=== PATIENT | male | born 1970 | race Caucasian/White ===

== ENCOUNTER 2017-07-05 20:23 | Emergency (ER) | payer OTHER ==
--- NOTE | 2017-07-05 22:46 | ER Document Report ---
ED General - General Chief Complaint: Back Injury Stated Complaint: BACK INJURY Time Seen by Provider: 07/05/17 22:28 Notes: Patient is a 47-year-old male comes emergency department for chief complaint of flank and upper abdominal pain. He states that one week ago he was lifting part of an engine and he felt a pop in his back and he was sore for a few days, he states he got over this but this morning he started developing pain that radiated into his right upper abdomen and around to his right mid back. He also admits to nausea, reduced appetite. He denies vomiting, fever, focal numbness or weakness, dysuria. Past medical history of prostate cancer, prostatectomy, kidney infections. No current daily medications. TRAVEL OUTSIDE OF THE [place] IN LAST 30 DAYS: No - Related Data Allergies/Adverse Reactions: No Known Allergies Allergy (Verified 05/28/12 04:32) Past Medical History - General Information source: Patient - Social History Smoking Status: Never Smoker Frequency of alcohol use: None Drug Abuse: None Lives with: Family Family History: Reviewed & Not Pertinent Pulmonary Medical History: Reports: Hx Bronchitis Denies: Hx Tuberculosis Renal/ Medical History: Reports: Hx Benign Prostatic Hyperplasia, Hx Kidney Stones Past Surgical History: Reports: Hx Urinary Tract Surgery - prostate surgery 3 wks ago. Denies: Hx Pacemaker - Immunizations Hx Diphtheria, Pertussis, Tetanus Vaccination: - unk Review of Systems - Review of Systems Constitutional: No symptoms reported EENT: No symptoms reported Cardiovascular: No symptoms reported Respiratory: No symptoms reported Gastrointestinal: See HPI Genitourinary: See HPI Male Genitourinary: No symptoms reported Musculoskeletal: See HPI Skin: No symptoms reported Hematologic/Lymphatic: No symptoms reported Neurological/Psychological: No symptoms reported Physical Exam - Vital signs Vitals: Temp Pulse Resp BP Pulse Ox 98.0 F 59 L 20 122/57 L 98 07/05/17 20:33 07/05/17 20:33 07/05/17 20:33 07/05/17 20:33 07/05/17 20:33 Interpretation: Normal - General General appearance: Appears well, Alert In distress: None - HEENT Head: Normocephalic, Atraumatic Eyes: Normal Pupils: PERRL - Respiratory Respiratory status: No respiratory distress Chest status: Nontender Breath sounds: Normal Chest palpation: Normal - Cardiovascular Rhythm: Regular Heart sounds: Normal auscultation Murmur: No - Abdominal Inspection: Normal Distension: No distension Bowel sounds: Normal Tenderness: Tender - Tender in the right upper quadrant and right side on exam, eating abdomen is benign. No: Guarding Organomegaly: No organomegaly - Back Back: Normal, Nontender. No: Tender, Vertebra tenderness - Extremities General upper extremity: Normal inspection, Nontender, Normal color, Normal ROM , Normal temperature General lower extremity: Normal inspection, Nontender, Normal color, Normal ROM , Normal temperature, Normal weight bearing. No: Malvin's sign - Neurological Neuro grossly intact: Yes Cognition: Normal Orientation: AAOx4 [place] Coma Scale Eye Opening: Spontaneous [place] Coma Scale Verbal: Oriented [place] Coma Scale Motor: Obeys Commands [place] Coma Scale Total: 15 Speech: Normal Motor strength normal: LUE, RUE, LLE, RLE Sensory: Normal - Psychological Associated symptoms: Normal affect, Normal mood - Skin Skin Temperature: Warm Skin Moisture: Dry Skin Color: Normal Course - Re-evaluation Re-evalutation: Despite patient reported symptoms patient has mid upper right abdominal tenderness along with pain radiating around his side and towards his back. I do not appreciate any particular areas of back pain with palpation, he does wince occasionally with movement. Because of abdominal pain and reported nausea earlier along with pain in the right upper quadrant on examination, ultrasound, laboratory workup performed. This does not show any concerning abnormalities. Patient's vital signs are normal. Discussed with patient. Appears to be musculoskeletal in nature, questionable gallbladder dyskinesia, does not appear to be specifically intra-abdominal source based on his workup. Minimal blood on urinalysis, no kidney stones or hydronephrosis noted on ultrasound. Patient does not present like a kidney stone, has no CVA tenderness. After discussion patient placed on muscle relaxer, given follow-up recommendations and return precautions. Patient states satisfaction and agreement. - Vital Signs Vital signs: Temp Pulse Resp BP Pulse Ox 97.9 F 54 L 18 123/76 98 07/06/17 00:43 07/06/17 00:43 07/06/17 00:43 07/06/17 00:43 07/06/17 00:43 - Laboratory Result Diagrams: 07/05/17 23:00 07/05/17 23:00 Laboratory results interpreted by me: 07/05/17 07/05/17 07/05/17 23:00 23:00 23:00 Hgb 13.3 L MCH 26.8 L RDW 14.8 H BUN 23 H Urine Blood SMALL H Urine Urobilinogen 4.0 H Discharge - Discharge Clinical Impression: Flank pain Abdominal pain Qualifiers: Abdominal location: upper abdomen, unspecified Qualified Code(s): R10.10 - Upper abdominal pain, unspecified Condition: Stable Disposition: HOME, SELF-CARE Additional Instructions: Your ultrasound and workup did not indicate a problem with your kidney, liver, or gallbladder. I do suspect this is still muscular in nature. Take the muscle relaxer as prescribed, apply heat to the area, rest. Take the medication given tonight if needed for worse pain. Consider follow-up HIDA scan because of the location of your pain tonight to further evaluate your symptoms. Follow-up with primary care. Return to the emergency department for any concerning or worsening symptoms including vomiting, fever, return or worsening pain, or any other concerning symptoms. Prescriptions: Methocarbamol [Robaxin 750 mg Tablet] 750 mg PO Q6 #20 tablet Forms: Return to Work
[2017-07-05 23:22] LABS: ABSOLUTE EOSINOPHILS # (AUTO) 0.2 10^3/uL (0.0-0.6); ABSOLUTE LYMPHOCYTES (AUTO) 2.6 10^3/uL (0.5-4.7); ABSOLUTE MONOCYTES (AUTO) 0.5 10^3/uL (0.1-1.4); ABSOLUTE NEUT (AUTO) 2.7 10^3/uL (1.7-8.2); BASOPHILS % (AUTO) 0.7 % (0-2); EOSINOPHILS % (AUTO) 3.6 % (0-6); HEMATOCRIT 40.7 % (37.9-51.0); HEMOGLOBIN 13.3 g/dL (13.5-17.0); HGB HCT DIFFERENCE -0.8; LYMPHOCYTES % (AUTO) 42.8 % (13-45); MEAN CORPUSCULAR HEMOGLOBIN 26.8 pg (27.0-33.4); MEAN CORPUSCULAR HGB CONC 32.8 g/dL (32.0-36.0); MEAN CORPUSCULAR VOLUME 82 fl (80-97); MONOCYTES % (AUTO) 8.8 % (3-13); RED BLOOD COUNT 4.98 10^6/uL (4.35-5.55); RED CELL DISTRIBUTION WIDTH 14.8 % (11.5-14.0); SEGMENTED NEUTROPHILS % (AUTO) 44.1 % (42-78)
[2017-07-05 23:29] LABS: AMORPHOUS SEDIMENT,URINE TRACE /HPF; APPEARANCE,URINE CLOUDY; BILIRUBIN,URINE NEGATIVE (NEGATIVE); GLUCOSE, URINE NEGATIVE (NEGATIVE); KETONES,URINE NEGATIVE (NEGATIVE); LEUKOCYTE ESTERASE,URINE NEGATIVE (NEGATIVE); NITRITE,URINE NEGATIVE (NEGATIVE); PROTEIN,URINE NEGATIVE (NEGATIVE); URINE SPECIFIC GRAVITY 1.025
[2017-07-05 23:42] LABS: ALANINE AMINOTRANSFERASE 58 U/L (21-72); ALBUMIN 4.3 g/dL (3.5-5.0); ALKALINE PHOSPHATASE 56 U/L (38-126); ANION GAP 10 (5-19); ASPARTATE AMINO TRANSFERASE 43 U/L (17-59); BILIRUBIN,DIRECT 0.2 mg/dL (0.0-0.4); BILIRUBIN,TOTAL 0.3 mg/dL (0.2-1.3); BLOOD UREA NITROGEN 23 mg/dL (7-20); CALCIUM 9.7 mg/dL (8.4-10.2); CARBON DIOXIDE 28 mmol/L (22-30); CHLORIDE 103 mmol/L (98-107); CREATININE RESULT 1.24 mg/dL (0.52-1.25); GLUCOSE 93 mg/dL (75-110); LIPASE 280.3 U/L (23-300); SODIUM 140.8 mmol/L (137-145); TOTAL PROTEIN 7.5 g/dL (6.3-8.2)
--- NOTE | 2017-07-06 00:35 | RADIOLOGY REPORT (SQ) ---
EXAM DESCRIPTION: U/S ABDOMEN LIMITED W/O DOP CLINICAL HISTORY: 47 years, Male, RUQ pain COMPARISON: None. LIMITATIONS: None. FINDINGS: Gallbladder, negative sonographic Lopes's test, 0.2 cm diameter common duct, hepatobiliary system, 15 cm liver, 9.4 cm right kidney, and aorta appear unremarkable. Pancreatic head is partially obscured. No demonstrated ascites. IMPRESSION: No acute findings. 2010 [employer]- All Rights Reserved
[2017-07-06 00:44] VITALS: BP 123/76
[2017-07-06] MEDS ORDERED: HYDROCODONE/ACETAMINOPHEN 5-325 MG 6 TAB/DSPK PO PRN (00:56)
== END 2017-07-06 01:15 | disposition home or self-care (01) ==
LOC: ER 20:23
DX: R10.11 Right upper quadrant pain (principal); R11.0 Nausea; R63.0 Anorexia; Z85.46 Personal history of malignant neoplasm of prostate; Z87.442 Personal history of urinary calculi
CPT/HCPCS: 36415; 76705; 80053; 81001; 83690; 85025; 99284

== ENCOUNTER 2017-09-21 20:02 | Emergency (ER) | payer BC, OTHER ==
[2017-09-21] MEDS ORDERED: KETOROLAC TROMETHAMINE 60 MG/2 ML SDV IM ONE (21:41)
--- NOTE | 2017-09-21 21:47 | ER Document Report ---
ED Extremity Problem, Upper - General Chief Complaint: Shoulder Pain Stated Complaint: LEFT SHOULDER PAIN Time Seen by Provider: 09/21/17 21:23 Mode of Arrival: Ambulatory Information source: Patient Notes: 47-year-old male presents to ED for complaint of left shoulder pain after he pulled his at work while working on a car. He states it felt like it popped out and the pain was severe about 1145. 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 States he has had this in the past and dislocated but is always been able to just rub up against a wall and he would feel better but this time is not working. TRAVEL OUTSIDE OF THE [place] IN LAST 30 DAYS: No - HPI Patient complains to provider of: Injury, Pain, Left, Shoulder Onset: This morning - 1145 Recent injury: Possibly Where: Work Quality of pain: Sharp, Throbbing Severity of pain: Moderate Pain Level: 4 Context: Other - Pulling on a car tire at work and felt a pop in his shoulder - Related Data Allergies/Adverse Reactions: No Known Allergies Allergy (Verified 05/28/12 04:32) Past Medical History - General Information source: Patient - Social History Smoking Status: Never Smoker Cigarette use (# per day): No Chew tobacco use (# tins/day): No Smoking Education Provided: No Frequency of alcohol use: Social Drug Abuse: None 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 denies: CAD, COPD, Thyroid Disfunction Patient has suicidal ideation: No Patient has homicidal ideation: No - Past Medical History Cardiac Medical History: Reports: None Pulmonary Medical History: Reports: Hx Bronchitis EENT Medical History: Reports: None Neurological Medical History: Reports: None Endocrine Medical History: Reports: None Renal/ Medical History: Reports: Hx Kidney Stones Malignancy Medical History: Reports Hx Prostate Cancer GI Medical History: Reports: Hx Ulcer, Hx Colonoscopy, Hx Endoscopy Musculoskeltal Medical History: Reports Hx Arthritis, Reports Hx Musculoskeletal Deformity, Reports Hx Musculoskeletal Trauma Skin Medical History: Reports None Psychiatric Medical History: Reports: None Traumatic Medical History: Reports: Hx Fractures - [place] Past Surgical History: Reports: Hx Urinary Tract Surgery - Removal of prostate for prostate cancer - Immunizations Hx Diphtheria, Pertussis, Tetanus Vaccination: - unk Review of Systems - Review of Systems Notes: Constitutional: [PRESENT: as per HPI. ABSENT: chills, fever(s), headache(s), weight gain, weight loss] Eyes: [ABSENT: visual disturbances] Ears: [ABSENT: hearing changes] Cardiovascular: [ABSENT: chest pain, dyspnea on exertion, edema, orthropnea, palpitations] Respiratory: [ABSENT: cough, hemoptysis] Gastrointestinal: [ABSENT: abdominal pain, constipation, diarrhea, hematemesis, hematochezia, nausea, vomiting] Genitourinary: [ABSENT: dysuria, hematuria] Musculoskeletal: Pain and decreased range of motion to the left shoulder due to pain Integumentary: [ABSENT: rash, wounds] Neurological: [ABSENT: abnormal gait, abnormal speech, confusion, dizziness, focal weakness, syncope] Psychiatric: [ABSENT: anxiety, depression, homicidal ideation, suicidal ideation ] Endocrine: [ABSENT: cold intolerance, heat intolerance, menstrual abnormalities , polydipsia, polyuria] Hematologic/Lymphatic: [ABSENT: easy bleeding, easy bruising, lymphadenopathy] Physical Exam - Vital signs Vitals: Temp Pulse Resp BP Pulse Ox 98.5 F 71 18 130/82 H 96 09/21/17 20:28 09/21/17 20:28 09/21/17 20:28 09/21/17 20:28 09/21/17 20:28 Interpretation: Normal - General General appearance: Appears well, Alert - HEENT Head: Normocephalic, Atraumatic Eyes: Normal Pupils: PERRL - Respiratory Respiratory status: No respiratory distress Chest status: Nontender Breath sounds: Normal Chest palpation: Normal - Cardiovascular Rhythm: Regular Heart sounds: Normal auscultation Murmur: No - Abdominal Inspection: Normal Distension: No distension Bowel sounds: Normal Tenderness: Nontender Organomegaly: No organomegaly - Back Back: Normal, Nontender - Extremities General upper extremity: Normal color, Normal temperature General lower extremity: Normal inspection, Nontender, Normal color, Normal ROM , Normal temperature, Normal weight bearing. No: Malvin's sign Shoulder: Tender, Limited ROM. No: Abrasion, Deformity, Dislocation, Ecchymosis - Due to pain, Instability, Laceration Arm: Tender. No: Abrasion, Deformity, Ecchymosis, Instability, Laceration, Other - Neurological Neuro grossly intact: Yes Cognition: Normal Orientation: AAOx4 [place] Coma Scale Eye Opening: Spontaneous [place] Coma Scale Verbal: Oriented [place] Coma Scale Motor: Obeys Commands [place] Coma Scale Total: 15 Speech: Normal Motor strength normal: LUE, RUE, LLE, RLE Sensory: Normal - Psychological Associated symptoms: Normal affect, Normal mood - Skin Skin Temperature: Warm Skin Moisture: Dry Skin Color: Normal Course - Re-evaluation Re-evalutation: 09/22/17 02:11 Patient was treated with Toradol and Flexeril before being discharged home. His x-ray was negative. Patient was instructed on use of ibuprofen ice warm packs and shoulder exercises. Patient was instructed to follow-up with orthopedics. Verbalized understanding of instructions. - Vital Signs Vital signs: Temp Pulse Resp BP Pulse Ox 98.3 F 68 20 136/68 H 98 09/21/17 23:58 09/21/17 23:58 09/21/17 23:58 09/21/17 23:58 09/21/17 23:58 - Diagnostic Test Radiology reviewed: Image reviewed, Reports reviewed Discharge - Discharge Clinical Impression: Injury of left shoulder Qualifiers: Encounter type: initial encounter Qualified Code(s): S49.92XA - Unspecified injury of left shoulder and upper arm, initial encounter Condition: Stable Disposition: HOME, SELF-CARE Additional Instructions: Shoulder Injury You have injured your shoulder. This usually results from stretching or tearing of the tendons during trauma. Time and protection are required in order to heal properly. Many injuries are quite disabling, and should be taken seriously. Initial treatment includes cold packs and a sling to rest the shoulder. The physician has assessed the seriousness of your injury, and has outlined a treatment plan. Understand that this treatment may change, depending on how you progress. If a re-examination was recommended, it is important that you follow up as instructed. Some shoulder injuries (such as partial tear of the rotator cuff) are only suspected after you've failed to improve. Call us if there's severe pain, numbness, or loss of function. Toradol Injection You have been given an injection of ketorolac tromethamine (Toradol). This is an excellent, safe drug for pain control. It also has potent antiinflammatory action. You should have significant pain relief within about one hour. Toradol is not addicting and is non-sedating. It does not interfere with driving or work. Call or return if you develop itching, hives, shortness of breath, or rash. Ibuprofen Ibuprofen is an excellent, safe drug for pain control. In addition, it has potent antiinflammatory effects which are beneficial, especially in the treatment of injuries, arthritis, or tendonitis. It's best to take ibuprofen with food. Persons with ulcer disease or allergy to aspirin should notify their physician of this before taking ibuprofen. Take the medication exactly as prescribed. Don't take additional doses unless instructed to do so by your doctor. If you develop wheezing, shortness of breath, hives, faintness, stomach pain, vomiting, or dark black stools, return for re-evaluation at once. Ice Packs Apply ice packs frequently against the painful area. Many different schedules are recommended, such as "20 minutes on, 20 minutes off" or "one hour ice, two hours rest." If you need to work, you may need to go longer between ice treatments. You should plan to have the area ice packed AT LEAST one fourth of the time. The ice should be applied over the wrap, tape, or splint, or over a layer of cloth -- not directly against the skin. Some ice bags have a built-in cloth and can be put directly on the skin. Warm Packs After approximately two days, apply gentle heat (such as a heating pad or hot water bottle) for about 20 to 30 minutes about every two hours -- at least four times daily. Warmth and elevation will help you make a more rapid recovery , and will ease the pain considerably. Do not use HOT heat, and never apply heat for longer than 30 minutes. The continuous heat can invisibly damage skin and muscles -- even when no burn is seen on the surface. Damaged muscles can make you MORE sore. Muscle Relaxers Muscle relaxing medications are usually prescribed for acute muscle spasm or injury to the neck and back. They are often combined with antiinflammatory pain medication for increased relief. You may stop the muscle relaxer when the pain and stiffness have improved. Start the medication again if spasms recur. Muscle relaxers may cause drowsiness, especially with the first dose. Do not operate machinery or drive while under the effects of the medication. Most muscle relaxers last up to 24 hours. Do not combine the medication with alcohol. Exercise Program for the Shoulder Since the shoulder moves in so many directions, the joint attachment is weak. Muscles provide most of the stability to the shoulder. You must exercise your shoulder to prevent painful instability or stiffening. PASSIVE - These may be begun within a few days of the injury. While standing, lean forward, allowing the arm to hang down towards the floor. Move the arm in small circles while slowly twisting your chest towards and away from the hanging arm. Do this for one minute. ACTIVE - These may be performed when the doctor gives permission. Begin with the arms at the sides. Raise the arms forward (shoulder's width apart) until they reach shoulder level. Then slowly swing both arms back until they are aiming straight out away from each other. Then bring them forward again, and finally, lower them to your sides. Repeat 20 to 30 times. As you improve, put weights in your hands for the exercise. Start with one pound, and work up to 10 pounds. Never use more than is comfortable. Athletes may work up to 30 pounds. FOLLOW-UP CARE: If you have been referred to a physician for follow-up care, call the physician s office for an appointment as you were instructed or within the next two days. If you experience worsening or a significant change in your symptoms, notify the physician immediately or return to the Emergency Department at any time for re-evaluation. Prescriptions: Cyclobenzaprine HCl [Flexeril 10 mg Tablet] 10 mg PO TIDP PRN #15 tab PRN Reason: Forms: Elevated Blood Pressure, Return to Work Referrals: DAVID SANCHES MD [ACTIVE STAFF] - Follow up as needed
--- NOTE | 2017-09-21 22:17 | RADIOLOGY REPORT (SQ) ---
EXAM DESCRIPTION: SHOULDER LEFT 2 OR MORE VIEWS COMPLETED DATE/TIME: 09/21/2017 10:00 pm REASON FOR STUDY: pain injury at work COMPARISON: None. NUMBER OF VIEWS: Three views. TECHNIQUE: Internal rotation, external rotation, and Y view images acquired of the left shoulder. LIMITATIONS: None. FINDINGS: MINERALIZATION: Normal. BONES: No acute fracture or dislocation. Moderate AC joint arthrosis. . JOINTS: No dislocation. VISUALIZED LUNGS AND RIBS: No pneumothorax. No rib fracture. SOFT TISSUES: No radiopaque foreign body. OTHER: No other significant finding. IMPRESSION: NO RADIOGRAPHIC EVIDENCE OF ACUTE INJURY. TECHNICAL DOCUMENTATION: JOB ID: [id number] [place]-72 2010 [employer]- All Rights Reserved Reading location - IP/workstation name: [email or web address]
[2017-09-21] MEDS ORDERED: CYCLOBENZAPRINE HCL 10 MG TABLET PO ONE (23:37)
[2017-09-22 00:22] VITALS: BP 136/68
== END 2017-09-22 00:21 | disposition home or self-care (01) ==
LOC: ER 20:02
DX: S49.92XA Unspecified injury of left shoulder and upper arm, initial encounter (principal); X58.XXXA Exposure to other specified factors, initial encounter
CPT/HCPCS: 99283; 96372; 73030; J1885

== ENCOUNTER 2019-06-09 16:39 | Emergency (ER) | payer BC ==
--- NOTE | 2019-06-09 17:01 | ER Document Report ---
ED Medical Screen (RME) - General Chief Complaint: Knee Pain Stated Complaint: LEFT KNEE PAIN, SWELLING Time Seen by Provider: 06/09/19 16:56 Mode of Arrival: Ambulatory Information source: Patient Notes: 48-year-old male presented to ED for recurrent knee effusion. He states that he had a golf pile size swelling to the front of his knee about 10 years ago he had somebody draw the fluid off it lasted about 10 years. He states in September he went to Dr. Morton and he had 1 of the orthopedic doctors draw the fluid off it lasted until recently it is returned and it is very large again very painful and he states it is keeping him awake due to the pain at night. He states at night it is warm to the touch. 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 Patient is alert oriented respirations regular nonlabored speaking in full sentences walks with even steady gait. I have greeted and performed a rapid initial assessment of this patient. A comprehensive ED assessment and evaluation of the patient, analysis of test results and completion of medical decision making process will be conducted by an additional ED providers. TRAVEL OUTSIDE OF THE [place] IN LAST 30 DAYS: No - Related Data Allergies/Adverse Reactions: No Known Allergies Allergy (Verified 05/28/12 04:32) Past Medical History Pulmonary Medical History: Reports: Hx Bronchitis Denies: Hx Tuberculosis Renal/ Medical History: Reports: Hx Kidney Stones. Denies: Hx Peritoneal Dialysis Malignancy Medical History: Reports Hx Prostate Cancer GI Medical History: Reports: Hx Ulcer, Hx Colonoscopy, Hx Endoscopy Musculoskeltal Medical History: Reports Hx Arthritis, Reports Hx Musculoskeletal Deformity, Reports Hx Musculoskeletal Trauma Traumatic Medical History: Reports: Hx Fractures - Persian Past Surgical History: Reports: Hx Urinary Tract Surgery - Removal of prostate for prostate cancer - Immunizations Hx Diphtheria, Pertussis, Tetanus Vaccination: - unk Physical Exam - Vital signs Vitals: Temp Pulse Resp BP Pulse Ox 97.9 F 91 18 142/70 H 98 06/09/19 16:42 06/09/19 16:42 06/09/19 16:42 06/09/19 16:42 06/09/19 16:42 Course - Vital Signs Vital signs: Temp Pulse Resp BP Pulse Ox 97.9 F 91 18 142/70 H 98 06/09/19 16:42 06/09/19 16:42 06/09/19 16:42 06/09/19 16:42 06/09/19 16:42
--- NOTE | 2019-06-09 17:31 | RADIOLOGY REPORT (SQ) ---
EXAM DESCRIPTION: KNEE LEFT 4 VIEW COMPLETED DATE/TIME: 06/09/2019 5:18 pm REASON FOR STUDY: Swelling "golf ball size knot knee COMPARISON: 05/22/2016. NUMBER OF VIEWS: Four views. TECHNIQUE: AP, lateral, and both oblique radiographic images acquired of the left knee. LIMITATIONS: None. FINDINGS: MINERALIZATION: Normal. BONES: No acute fracture or dislocation. No worrisome bone lesions. JOINT: No effusion. SOFT TISSUES: Prominent prepatellar soft tissue swelling. No radio-opaque foreign body. OTHER: No other significant finding. IMPRESSION: PREPATELLAR SOFT TISSUE SWELLING. NO SIGNIFICANT BONY FINDINGS. TECHNICAL DOCUMENTATION: JOB ID: [id number] [employer]- All Rights Reserved Reading location - IP/workstation name: [email or web address]
--- NOTE | 2019-06-09 19:08 | ER Document Report ---
ED General - General Chief Complaint: Knee Pain Stated Complaint: LEFT KNEE PAIN, SWELLING Time Seen by Provider: 06/09/19 16:56 Primary Care Provider: INGA BARRON MD [Primary Care Provider] - Follow up in 3-5 days Mode of Arrival: Ambulatory Information source: Patient Notes: Patient presents emergency department with left knee swelling for the past 2 months. 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 Reports he was walking last Sunday pain increased in hurts at night. Denies fever vomiting diarrhea. Reports this happened in the past and his orthopedic has drained fluid off of it. He did go see his primary care provider and was referred to orthopedics. TRAVEL OUTSIDE OF THE [place] 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 denies: CAD, COPD, Thyroid Disfunction Patient has suicidal ideation: No Patient has homicidal ideation: No Pulmonary Medical History: Reports: Hx Bronchitis Denies: Hx Tuberculosis Renal/ Medical History: Reports: Hx Kidney Stones. Denies: Hx Peritoneal Dialysis Malignancy Medical History: Reports Hx Prostate Cancer GI Medical History: Reports: Hx Ulcer, Hx Colonoscopy, Hx Endoscopy Musculoskeletal Medical History: Reports Hx Arthritis, Reports Hx Musculoskeletal Deformity, Reports Hx Musculoskeletal Trauma Traumatic Medical History: Reports: Hx Fractures - Maced[place] Past Surgical History: Reports: Hx Urinary Tract Surgery - Removal of prostate for prostate cancer - Immunizations Hx Diphtheria, Pertussis, Tetanus Vaccination: - unk Review of Systems - Review of Systems Notes: Review HPI for review of systems., All other systems negative Physical Exam - Vital signs Vitals: Temp Pulse Resp BP Pulse Ox 97.9 F 91 18 142/70 H 98 06/09/19 16:42 06/09/19 16:42 06/09/19 16:42 06/09/19 16:42 06/09/19 16:42 - General General appearance: Appears well, Alert In distress: None - HEENT Head: Normocephalic Eyes: Normal Conjunctiva: Normal Extraocular movements intact: Yes Neck: Supple - Respiratory Respiratory status: No respiratory distress Breath sounds: Normal - Extremities General upper extremity: Normal ROM, Normal strength General lower extremity: Normal ROM, Normal strength Knee: Other - Left knee bursitis no erythema no warmth no pustule flexes and extends leg without problem. No: Tender - Neurological Neuro grossly intact: Yes Cognition: Normal Orientation: AAOx4 Simin Coma Scale Eye Opening: Spontaneous Simin Coma Scale Verbal: Oriented Randolph Coma Scale Motor: Obeys Commands Simin Coma Scale Total: 15 Speech: Normal - Psychological Associated symptoms: Normal affect, Normal mood - Skin Skin Temperature: Warm Skin Moisture: Dry Skin Color: Normal Course - Re-evaluation Re-evalutation: 06/09/19 19:07 48-year-old male presents with left knee bursitis. X-ray notes prepatellar soft tissue swelling. Knee is not infected no erythema no warmth. Patient has had this before and has had to have fluid drained. He reports he did follow-up as his primary care provider Dr. Morton and was referred to orthopedics. He has not followed up with orthopedics yet. He reports in the past Dr. mora had drained his knee. He was instructed on results bursitis. He requested it to be drained today. I consulted Dr. Abernathy my attending who declined draining the knee he reports he needs to follow-up with orthopedics to have it drained. I instructed the patient on signs and symptoms of infection. I instructed him on the importance of following up with his orthopedic to have it taken care of. He verbalized understanding to all instructions Knee X-Ray 06/09/19 17:01 IMPRESSION: PREPATELLAR SOFT TISSUE SWELLING. NO SIGNIFICANT BONY FINDINGS. 06/09/19 19:46 Dictation of this chart was performed using voice recognition software; therefore, there may be some unintended grammatical errors. - Vital Signs Vital signs: Temp Pulse Resp BP Pulse Ox 98.0 F 70 16 138/73 H 98 06/09/19 19:59 06/09/19 19:59 06/09/19 19:59 06/09/19 19:59 06/09/19 19:59 Procedures - Immobilization Left Knee Immobilizer type: Carl wrap Performed by: PCT Post-Proc Neuro Vasc Exam: Unchanged from pre-exam Discharge - Discharge Clinical Impression: Prepatellar bursitis, left knee Condition: Stable Disposition: HOME, SELF-CARE Instructions: Carl Wrap ([facility]), Bursitis ([facility]) Additional Instructions: *You have been evaluated for left knee bursitis *Maintain the carl wrap, monitor your knee for signs of infection such as redness warmth increased swelling increased pain *Rest/Ice/Elevate your knee *Follow up with orthopedics within the next week for evaluation *Take ibuprofen as indicated *Return to ED for worsening condition, changes, needs, signs of infection to your knee Referrals: INGA BARRON MD [Primary Care Provider] - Follow up in 3-5 days
[2019-06-09 19:59] VITALS: BP 138/73
== END 2019-06-09 20:06 | disposition home or self-care (01) ==
LOC: ER 16:39
DX: M70.42 Prepatellar bursitis, left knee (principal); M25.562 Pain in left knee
CPT/HCPCS: 99283

== ENCOUNTER → 2019-06-16 | Outpatient (CLI) | payer BC | LOC: OD 12:45 | PROVIDERS: ATTEND Orthopaedic Surgery | DX: I10 Essential (primary) hypertension (principal) | CPT/HCPCS: 36415; 86200; 86430 ==

== ENCOUNTER 2019-06-27 05:27 | Day surgery (SDC) | payer BC ==
[~2019-06-27 05:27] MED LIST: ACETAMINOPHEN 325 MG TABLET PO PRN; CEFAZOLIN SODIUM 2 GM in DEXTROSE 5%-WATER 100 ML IV PRN; DEXAMETHASONE SOD PHOSPHATE INJ 4 MG/1 ML VIAL ONE; KETOROLAC TROMETHAMINE 60 MG/2 ML SDV ONE; LACTATED RINGERS 1000 ML IV PRN; ONDANSETRON HCL INJ/PF 4 MG/2 ML SDV ONE; OXYCODONE HCL SR 10 MG TABLET PO PRN
[2019-06-27] MEDS ORDERED: OXYCODONE HCL SR 10 MG TABLET PO ONE (06:07)
[2019-06-27] MEDS ORDERED: ACETAMINOPHEN 325 MG TABLET ONE (06:07)
[2019-06-27 06:14] LABS: HEMATOCRIT 41.2 % (37.9-51.0); HEMOGLOBIN 13.5 g/dL (13.5-17.0); MEAN CORPUSCULAR HEMOGLOBIN 26.6 pg (27.0-33.4); MEAN CORPUSCULAR HGB CONC 32.8 g/dL (32.0-36.0); MEAN CORPUSCULAR VOLUME 81 fl (80-97); PLATELET COUNT 206 10^3/uL (150-450); RED BLOOD COUNT 5.08 10^6/uL (4.35-5.55)
[2019-06-27] MEDS ORDERED: FENTANYL CITRATE INJ/PF 100 MCG/2 ML AMPUL ONE (07:07)
[2019-06-27] MEDS ORDERED: HYDROMORPHONE HCL INJ/PF 2 MG/ML AMPULE ONE (07:08)
[2019-06-27] MEDS ORDERED: MIDAZOLAM 2 MG/2 ML INJ ONE (07:08)
[2019-06-27] MEDS ORDERED: LIDOCAINE 2% INJ (20 MG/ML) 20 ML MDV ONE (07:08)
[2019-06-27] MEDS ORDERED: PROPOFOL INJ 200 MG/20 ML VIAL IV ONE (07:08)
[2019-06-27] MEDS ORDERED: LIDOCAINE 1% INJ-PF (10 MG/ML) 30 ML SDV ONE (07:42)
[2019-06-27] MEDS ORDERED: BUPIVACAINE HCL 0.25 % INJ/PF (2.5 MG/1 ML) 30 ML VIAL ONE (07:42)
[2019-06-27] MEDS ORDERED: FENTANYL CITRATE INJ/PF 100 MCG/2 ML AMPUL IV PRN ×3 (07:47)
[2019-06-27] MEDS ORDERED: MORPHINE SULFATE 10 MG/ML INJ IV PRN ×2 (07:47→09:40)
[2019-06-27] MEDS ORDERED: ONDANSETRON HCL INJ/PF 4 MG/2 ML SDV IV PRN (07:47)
[2019-06-27] MEDS ORDERED: DIPHENHYDRAMINE HCL 50 MG/ML VIAL IV PRN (07:47)
[2019-06-27] MEDS ORDERED: MEPERIDINE HCL/PF INJ 25 MG/1 ML DISP.SYRIN IV PRN (07:47)
[2019-06-27] MEDS ORDERED: OXYCODONE-ACETAMINOPHEN 5-325 MG TABLET PO PRN ×2 (07:47)
[2019-06-27] MEDS ORDERED: PROMETHAZINE HCL INJ 25 MG/1 ML VIAL IV PRN (07:47)
[2019-06-27] MEDS ORDERED: OXYCODONE HCL IR 5 MG TABLET ONE (09:06)
[2019-06-27] MEDS ORDERED: OXYCODONE HCL SR 10 MG TABLET PO PRN (09:22)
[2019-06-27] MEDS ORDERED: ACETAMINOPHEN 325 MG TABLET PO PRN (09:23)
--- NOTE | 2019-06-27 09:26 | Operative Report ---
Operative Report DATE OF SURGERY: 06/27/19 PREOPERATIVE DIAGNOSIS: Left knee prepatellar bursitis. POSTOPERATIVE DIAGNOSIS: Left knee prepatellar bursitis OPERATION: Left knee prepatellar bursectomy SURGEON: TOM KRUSE JR ANESTHESIA: GA TISSUE REMOVED OR ALTERED: Left knee prepatellar bursa COMPLICATIONS: None ESTIMATED BLOOD LOSS: Minimal PROCEDURE: The patient is a pleasant 48-year-old male who presents after having a chronic history of left knee prepatellar bursitis that has been refractory to compression, [id number] pain medication, other conservative management, and watchful waiting. Due to continued annoying swelling that is moderate to severe over the prepatellar bursa with associated pain and difficulty with activity due to the size of the mass, the patient was interested in surgical excision. We went over the risks and benefits of operative and nonoperative treatment options and the patient provided operative informed consent. The patient was brought to the operating room placed supine on the operating table. He was given 2 g of Ancef. After this the leg was prepped and draped in standard sterile fashion. An appropriate timeout was performed. An incision was made slightly medial to the patella. Upon opening and developing skin flaps a large fluid-filled sac was appreciable. We sharply dissected the fluid-filled filled sac all the way around its borders until it was excised as a total single unit. This measured approximately 4 x 4 x 3 cm. This was then sent for pe rmanent pathology. Following complete excision the remaining tissue was then scraped with a duarte elevator in an attempt to incite bleeding and a subsequent inflammatory process that may lead to healing of this space. Following this a 3-0 strata fix barbed suture was utilized to bring the tissue together. First the medial aspect was sewn in a running fashion from inferior to superior [id number] until the medial space was completely eliminated, this was followed by the same technique on the lateral aspect. Following this 2-0 Monocryl sutures were then utilized in the subdermal tissue and inverse interrupted fashion. 3-0 strata fix barbed suture was then utilized in a running fashion for subcuticular closure. This was followed with a Xeroform dressing and then with 4 x 4's and a compressive OpSite dressing followed by web roll and Carl wrap. The patient was awakened in anesthesia and transferred to PACU in stable condition.
[2019-06-27] MEDS ORDERED: OXYCODONE HCL IR 5 MG TABLET PO PRN ×2 (09:38→09:39)
[2019-06-27] MEDS ORDERED: TRAMADOL HCL 50 MG TABLET PO PRN (09:41)
[2019-06-27] MEDS ORDERED: DIPHENHYDRAMINE HCL 25 MG CAPSULE PO PRN (09:42)
[2019-06-27] MEDS ORDERED: ONDANSETRON HCL 8 MG TABLET PO PRN (09:42)
[2019-06-27 10:20] VITALS: BP 117/66
[2019-06-27] MEDS ORDERED: ACETAMINOPHEN 325 MG TABLET PO SCH (14:00)
== END 2019-06-27 10:15 | disposition home or self-care (01) ==
LOC: OROUT 05:27
PROVIDERS: ATTEND Orthopaedic Surgery
DX: M70.42 Prepatellar bursitis, left knee (principal); M06.9 Rheumatoid arthritis, unspecified; Z88.5 Allergy status to narcotic agent
CPT/HCPCS: 36415; 85027; 88304 ×2; 27340; J2250; J3490 ×2; J0690; J1100; J1885; J3010; J2405; J7060; J2704; 1320; J1170

== ENCOUNTER → 2019-07-17 | Outpatient (CLI) | payer BC ==
--- NOTE | 2019-07-17 14:32 | RADIOLOGY REPORT (SQ) ---
EXAM DESCRIPTION: VENOUS UNILATERAL LOWER COMPLETED DATE/TIME: 07/17/2019 2:04 pm REASON FOR STUDY: LLE PAIN M79.662 PAIN IN LEFT LOWER LEG COMPARISON: None. TECHNIQUE: Dynamic and static lopes scale and color images acquired of the left leg venous system. Se lected spectral images acquired with additional compression and augmentation maneuvers. The contralat eral common femoral vein and saphenofemoral junction were also imaged. Images stored on PACS. LIMITATIONS: None. FINDINGS: COMMON FEMORAL: Normal phasicity, compression and augmentation. No visualized echogenic ma terial on lopes scale. No defects on color images. FEMORAL: Normal compression and augmentation. No visualized echogenic material on lopes scale. No defe cts on color images. POPLITEAL: Normal compression, augmentation. No visualized echogenic material on lopes scale. No defec ts on color images. CALF VESSELS: Normal compression, augmentation. No visualized echogenic material on lopes scale. No de fects on color images. GSV and SSV: Normal compression, augmentation. No visualized echogenic material on lopes scale. No def ects on color images. ANY DEEP VENOUS INSUFFICIENCY: Not evaluated. ANY EVIDENCE OF POPLITEAL CYST: No. OTHER: No other significant finding. CONTRALATERAL COMMON FEMORAL VEIN AND SAPHENOFEMORAL JUNCTION: Normal phasicity, compression and augmentation. No visualized echogenic material on lopes scale. No de fects on color images. IMPRESSION: NO EVIDENCE DVT OR SVT IN THE LEFT LEG. TECHNICAL DOCUMENTATION: JOB ID: [id number] [id number] 2010 [employer]- All Rights Reserved Reading location - IP/workstation name: [email or web address]
== END ==
LOC: SP 12:36
PROVIDERS: ATTEND Orthopaedic Surgery
DX: M79.662 Pain in left lower leg (principal)
CPT/HCPCS: 93971